=== PATIENT | female | born 1940 | race Caucasian/White ===

== ENCOUNTER 2017-05-25 10:33 | Day surgery (SDC) | payer MEDICARE, OTHER ==
[2015-09-27 15:42] VITALS: BMI 27.5
[~2017-05-25 10:33] MED LIST: BAYER CHEWABLE81 MG PO; BIOTIN5 MG PO; CELEXA20 MG PO; COREG 3.1253.125 MG PO; DESERYL100 MG PO; GABAPENTIN100 MG PO; MYSOLINE 50 MG50 MG PO; NITROSTAT0.4 MG SL; PEPCID40 MG PO; PLAVIX75 MG PO; PROTONIX40 MG PO; ROCALTROL0.5 MCG PO; SINGULAIR10 MG PO; TUMS500 MG PO; VITAMIN B-121000 MCG PO; VITAMIN D250000 UNIT PO; ZOCOR10 MG PO; ZYRTEC10 MG PO
[2017-05-25] MEDS ORDERED: FUROSEMIDE10 MG/M1 IV (12:16)
[2017-05-25] MEDS ORDERED: K-TAB10 MEQ PO (12:18)
[2017-05-25] MEDS ORDERED: ISOSORBIDE MONO30 M1 PO (12:18)
[2017-05-25] MEDS ORDERED: ROCALTROL0.5 MCG PO (12:19)
== END 2017-05-25 12:35 | disposition home or self-care (01) ==
LOC: D.OPS 10:33
DX: R10.13 Epigastric pain (principal); R11.0 Nausea; K21.9 Gastro-esophageal reflux disease without esophagitis; Z01.810 Encounter for preprocedural cardiovascular examination; Z01.811 Encounter for preprocedural respiratory examination; Z01.812 Encounter for preprocedural laboratory examination; Z53.9 Procedure and treatment not carried out, unspecified reason

== ENCOUNTER 2017-06-01 11:23 | Day surgery (SDC) | payer MEDICARE, OTHER ==
[~2017-06-01] VITALS: Ht 157.5 cm; Wt 76.8 kg
[~2017-06-01 11:23] MED LIST changes: +FUROSEMIDE10 MG/M1 IV; +ISOSORBIDE MONO30 M1 PO; +K-TAB10 MEQ PO
[2017-06-01] MEDS ORDERED: CARAFATE1 G/10 ML PO (13:46)
[2017-06-01 13:50] VITALS: BP 113/62; Ht 157.5 cm; Wt 76.8 kg
[2017-06-01 14:11] LABS: BASOPHILS 0.4 % (0-2); EOSINOPHILS 2.5 % (0-7); HEMATOCRIT 36.5 % (36.0-48.0); HEMOGLOBIN 11.3 g/dL (12-16); IMMATURE GRANULOCYTES 0.1 % (0-5); MCH 26.5 pg (26.0-34.0); MCV 85.5 fL (80.0-100.0); MEAN PLATELET VOLUME 9.1 fL (7.4-10.4); MONOCYTES 6.8 % (2-11); NEUTROPHILS 47.2 % (40-80); PLATELET COUNT 171 10x3/uL (130-400); RBC 4.27 10x6/uL (4.00-5.40); RDW 14.2 % (11.5-14.5); WBC 6.8 10x3/uL (4.8-10.8)
[2017-06-01 14:34] LABS: ANION GAP 9.9 mmol/L (8-16); CALCIUM 8.7 mg/dL (8.5-10.1); CARBON DIOXIDE 32.9 mmol/L (21.0-32.0); CREATININE - SERUM 0.9 mg/dL (0.6-1.3); POTASSIUM - SERUM 3.8 mmol/L (3.5-5.1)
--- NOTE | 2017-06-01 15:48 | NUR ---
1548-DILATE ESOPHAGUS WITH 18-20 CRE BALLOON.
--- NOTE | 2017-06-01 16:21 | NUR ---
1610- PT BACK TO ROOM, LEFT LATERAL WITH HOB ELEVATED. CONTINUES WITH COUGH. WAS AGGREVATED BY PROCEDURE. DR. YBARRA AT BEDSIDE. TWO VEIW CHEST XRAY ORDERED. PT WITH WATER AND FAMILY AT BEDSIDE. WILL MONITOR.
--- NOTE | 2017-06-01 16:27 | NUR ---
PT TO RADIOLOGY FOR CHEST XRAY VIA WHEELCHAIR.
--- NOTE | 2017-06-01 17:06 | NUR ---
1645- IV D/C'D, PT TOLERATED. CATHETER INTACT 1655- DISCHARGE INSTRUCTIONS COMPLETED. PAPER WORK SIGNED. PT AND FAMILY VERBALIZED UNDERSTANDING. 1700- PT DISCHARGED VIA AMBULATION WITH X1 ASSIST UPON REQUEST. WALKED HER DOWN WITH CARLITOS TO CHRISTEN.
--- NOTE | 2017-06-02 07:48 | OP ---
PATIENT NAME: JAZMIN PARSON MEDICAL RECORD: [id number] :39 [facility] DATE: SURGEON: RAVINDRA YBARRA DO DATE OF OPERATION: 06/01/2017 PROCEDURE: EGD. INDICATIONS: Epigastric abdominal pain, dysphagia, GERD, nausea. SCOPE: Olympus video gastroscope. MEDICATIONS: Propofol 200 mg IV per anesthesia. ESTIMATED BLOOD LOSS: Minimal. COMPLICATIONS: None. FINDINGS: Informed consent was given. The patient was made comfortable with the above medication. After reaching an adequate level of sedation by slow IV push, the patient was placed on her left side. The endoscope was then advanced under direct visualization through the mouth to the small bowel. The upper and middle thirds of the esophagus appeared normal. In the lower third of the esophagus, there was some healing esophageal ulcerations, which were clean based and very superficial. Just proximal to the GE junction, there was a nonstenotic Schatzki ring, which was approximately 15-16 mm in diameter. The scope traversed this site without difficulty. At the GE junction, there was evidence of LA class A reflux-induced esophagitis. There was a hiatal hernia present and visible from the esophageal side of the GE junction. When the scope was advanced beyond the GE junction, there was a small gastric pouch with some friability and granular mucosa. There was also some bile in the stomach, which could indicate that this is bilious gastritis. Scope was advanced beyond this site in the small bowel, which appeared normal. Scope was then withdrawn back up into the stomach and a 18-20 mm dilating CRE balloon was placed through the working channel. The endoscope was withdrawn back to the Schatzki ring and this site was dilated up to 20 mm without difficulty and successfully. The CRE balloon was then withdrawn from the scope and the endoscope was withdrawn from the patient. The patient tolerated the procedure well and there were no complications. IMPRESSION: 1. Schatzki ring dilated up to 20 mm. 2. LA class A reflux-induced esophagitis. 3. Healed esophageal ulcers. 4. Friable and possible bilious gastritis. 5. Hiatal hernia. PLAN AND RECOMMENDATIONS: 1. Discharge home when recovery parameters are met. 2. Continue GERD diet with reflux precautions. 3. Continue current medications including famotidine 40 mg b.i.d. and Carafate tablets dissolved q.i.d. 4. Follow up with Dr. Cardenas regarding possible LINX placement. 5. Proceed with colonoscopy as scheduled. TRANSINT:[id number] Voice Confirmation ID: [id number] DOCUMENT ID: [id number] OPERATIVE REPORT [id number] JAZMIN PARSON,RAVINDRA Chambers DO at 0748 CC: [id number] DICTATION DATE: 06/01/17 1600 OIL SPRAYING MACHINE OPERATOR: 06/01/17 1630 [facility] 06/01/[address] [address]
== END 2017-06-01 17:00 | disposition home or self-care (01) ==
LOC: D.OPS 11:23
PROVIDERS: Anesthesiology
DX: K21.0 Gastro-esophageal reflux disease with esophagitis (principal); K22.2 Esophageal obstruction; K44.9 Diaphragmatic hernia without obstruction or gangrene; K29.70 Gastritis, unspecified, without bleeding; Z01.812 Encounter for preprocedural laboratory examination

== ENCOUNTER 2017-06-08 07:32 | Day surgery (SDC) | payer MEDICARE, OTHER ==
[~2017-06-08] VITALS: Ht 152.4 cm; Wt 73.6 kg
[~2017-06-08 07:32] MED LIST changes: +CARAFATE1 G/10 ML PO
[2017-06-08 09:09] LABS: ANION GAP 12.5 mmol/L (8-16); CALCIUM 8.5 mg/dL (8.5-10.1); CARBON DIOXIDE 27.9 mmol/L (21.0-32.0); CREATININE - SERUM 0.9 mg/dL (0.6-1.3); POTASSIUM - SERUM 3.4 mmol/L (3.5-5.1)
[2017-06-08 09:30] LABS: HEMATOCRIT 36.5 % (36.0-48.0); HEMOGLOBIN 11.4 g/dL (12-16); MCH 26.1 pg (26.0-34.0); MCHC 31.2 g/dL (31.0-37.0); MCV 83.7 fL (80.0-100.0); MEAN PLATELET VOLUME 10.3 fL (7.4-10.4); RBC 4.36 10x6/uL (4.00-5.40); RDW 14.3 % (11.5-14.5); WBC 6.4 10x3/uL (4.8-10.8)
[2017-06-08 09:35] VITALS: BP 142/71; Ht 152.4 cm; Wt 73.6 kg
--- NOTE | 2017-06-08 12:19 | NUR ---
1115-RETURNED TO ROOM FROM GI LAB. ALERT. FULL LIQUIDS SERVED. 1120-DR YBARRA HERE TO REPORT FINDINGS 1145-NO NAUSEA, IV D/C AND VOIDS. 1215-DISCHARGE INSTRUCTIONS REVIEWED AND D/C HOME VIA WHEELCHAIR WITH DAUGHTER.
--- NOTE | 2017-06-09 09:13 | OP ---
PATIENT NAME: JAZMIN PARSON MEDICAL RECORD: [id number] :39 LOCATION:[facility] ADMISSION DATE: SURGEON: RAVINDRA YBARRA DO DATE OF OPERATION: 06/08/2017 PROCEDURE: Colonoscopy. INDICATION: History of colon polyps, diverticular disease and hematochezia. SCOPE: Inform Direct video pediatric colonoscope. MEDICATIONS: Propofol 150 mg IV per anesthesia. WITHDRAWAL TIME: 7 minutes. ESTIMATED BLOOD LOSS: None. COMPLICATIONS: None. FINDINGS: Informed consent was given. The patient was made comfortable with the above medication. After reaching an adequate level of sedation by slow IV push, the patient was placed on her left side. A digital rectal examination was performed and revealed moderate size external hemorrhoids without any signs of bleeding or bleeding stigmata. Scope was then advanced under direct visualization through the rectum to the cecum with visualization of the appendiceal orifice and ileocecal valve. The scope was slowly withdrawn and mucosa was carefully examined. Prep quality was good. There were no polyps visualized on this examination. There were no ulcerations or other abnormalities seen. There was no active or recent bleeding visualized. There was moderate diverticulosis of the descending and sigmoid colon without evidence of diverticulitis. Retroflexion was performed in the rectum with visualization of small nonbleeding internal hemorrhoids. The scope was then withdrawn from the patient. The patient tolerated the procedure well and there were no complications. IMPRESSION: 1. Moderate diverticulosis of the left side of the colon. 2. Internal and external hemorrhoids without active bleeding or bleeding stigmata. PLAN AND RECOMMENDATIONS: 1. Discharge home when recovery parameters are met. 2. Okay to use rpnl-[id number]-rfbngvd hemorrhoid treatment. 3. No further colonoscopies based on the patient's age, unless symptoms warrant evaluation. 4. If bleeding becomes persistent and is not management by rxei-eqh-xufopqg treatments, prescription medications will be offered for likely hemorrhoidal bleeding. Alternatively, the patient could have intermittent diverticular bleeding and if this became persistent, surgery may be required to help with this. As of now, there is no bleeding and this should be monitored expectantly. TRANSINT:[id number] Voice Confirmation ID: [id number] DOCUMENT ID: [id number] OPERATIVE REPORT [id number] JAZMIN PARSON RAVINDRA YBARRA DO at 0913 CC: [id number] DICTATION DATE: 06/08/17 1104 DATABASE PROGRAMMER ANALYST: 06/08/17 1706 [facility] 06/08/17 [facility] [address] [place] [address]
== END 2017-06-08 12:15 | disposition home or self-care (01) ==
LOC: D.OPS 07:32
PROVIDERS: Anesthesiology
DX: Z86.010 Personal history of colon polyps (principal); K57.30 Diverticulosis of large intestine without perforation or abscess without bleeding; K64.4 Residual hemorrhoidal skin tags; K64.8 Other hemorrhoids; K21.9 Gastro-esophageal reflux disease without esophagitis; Z01.812 Encounter for preprocedural laboratory examination

== ENCOUNTER 2017-06-12 20:04 | Inpatient (IN) | payer MEDICARE, OTHER ==
[~2017-06-12] VITALS: Ht 152.4 cm; Wt 78.5 kg
[2017-06-12 20:51] LABS: BASOPHILS 0 % (0-2); EOSINOPHILS 0.2 % (0-7); HEMATOCRIT 42.1 % (36.0-48.0); HEMOGLOBIN 13.6 g/dL (12-16); IMMATURE GRANULOCYTES 0.1 % (0-5); LYMPHOCYTES 8.6 % (15-50); MCH 26.9 pg (26.0-34.0); MCHC 32.3 g/dL (31.0-37.0); MCV 83.2 fL (80.0-100.0); MEAN PLATELET VOLUME 9.2 fL (7.4-10.4); MONOCYTES 3.9 % (2-11); NEUTROPHILS 87.2 % (40-80); PLATELET COUNT 193 10x3/uL (130-400); RBC 5.06 10x6/uL (4.00-5.40); RDW 14.5 % (11.5-14.5); WBC 8.7 10x3/uL (4.8-10.8)
[2017-06-12 20:53] LABS: APPEARANCE CLEAR (CLEAR); BILIRUBIN NEGATIVE (NEGATIVE); COLOR YELLOW (YELLOW); GLUCOSE NEGATIVE (NEGATIVE); KETONE SMALL mg/dL (NEGATIVE); LEUKOCYTE ESTERASE NEGATIVE (NEGATIVE); NITRITE NEGATIVE (NEGATIVE); PROTEIN NEGATIVE (NEGATIVE); UROBILINOGEN NORMAL (NORMAL)
[2017-06-12 20:58] LABS: ALBUMIN 3.6 g/dL (3.4-5.0); ANION GAP 12.6 mmol/L (8-16); BILIRUBIN - TOTAL 0.58 mg/dL (0.2-1.3); CALCIUM 8.9 mg/dL (8.5-10.1); CARBON DIOXIDE 27.9 mmol/L (21.0-32.0); POTASSIUM - SERUM 3.5 mmol/L (3.5-5.1); PROTEIN - SERUM 7.1 g/dL (6.4-8.2)
[2017-06-12 22:25] LABS: APTT 30.5 SECONDS (22.8-39.4); INR 0.96 (0.85-1.17); PROTIME 12.7 SECONDS (11.6-15.0)
[2017-06-13] VITALS (7 sets, daily range): BP systolic 105–148; BP diastolic 56–78; Ht 152.4 cm; Wt 78.5 kg
--- NOTE | 2017-06-13 00:06 | NUR ---
PATIENT RECIEVED FROM ER VIA STRETCHER WITH DAUGHTER, RN AND SHIP'S SURVEYOR. INVANZ RESTARTED IN ROOM ON IV PUMP
--- NOTE | 2017-06-13 01:18 | NUR ---
RN NOTE: ADMISSION ASSESSMENT COMPLETE. PT RESTING QUIETLY AT THIS TIME. DAUGHTER IS AT BEDSIDE.
--- NOTE | 2017-06-13 01:31 | NUR ---
MEAT PRODUCTS DEMONSTRATOR NOTIFIED THAT DR SEXTON WAS BEING PAGED FOR PATIENT HAVING A TEMP OF 100.8 AFTER FIRST DOSE OF ABX.
--- NOTE | 2017-06-13 07:45 | NUR ---
SLEEPING, DAUGHTER AT BEDSIDE, CALL LIGHT IN REACH, WILL CONTINUE TO MONITOR
--- NOTE | 2017-06-13 10:35 | NUR ---
PT LAYING IN BED ASLEEP WITH NO VISABLE SIGNS OF PAIN OR DISCOMFORT AT THIS TIME. PT HAS FAMILY MEMBER AT BEDSIDE. BED IN LOW POSITION AND CALL LIGHT WITHIN REACH. WILL CONTINUE TO MONTIOR.
--- NOTE | 2017-06-13 21:48 | NUR ---
DILADID COMPUTER SYSTEMS TECHNICIAN DECREASED FROM STTINGS 0.2/07/15 TO 0.1/07/15
--- NOTE | 2017-06-14 03:04 | NUR ---
PT RESTING QUIETLY, EYES CLOSED. RESP EVEN, UNLABORED. NO DISTRESS NOTED. DAUGHTER AT BEDSIDE. CONTINUE ENVIRONMENTAL ATTORNEY'S PLAN OF CARE.
[2017-06-14 04:04] VITALS: BP 148/68
--- NOTE | 2017-06-14 06:00 | NUR ---
SMALL BLOOD CLOT PASSED RECTALLY. PATIENT AGITATED AND WANTS SOMETHING TO HELP HER HAVE A BM
--- NOTE | 2017-06-14 07:35 | NUR ---
PT ASLEEP WITH NO VISABLE SIGNS OF PAIN OR DISCOMFORT AT THIS TIME. BED IN LOW POSITION AND CALL LIGHT WITHIN REACH. WILL CONTINUE TO MONITOR.
--- NOTE | 2017-06-14 07:45 | NUR ---
ALERT, DENIES NEEDS, DAUGHTER AT BEDSIDE, DAUGHTER IS UPSET WE WON'T PRINT A COPY OF HER CT SCAN, I INFORMED HER SHE CAN GET COPIES FROM MEDICAL RECORDS UPON DISCHARGE PER CATALYST OPERATOR GASOLINE, WILL CONTINUE TO MONITOR
[2017-06-14 08:57] VITALS: BP 122/52
[2017-06-14 12:35] VITALS: BP 134/67
[2017-06-14 15:25] VITALS: BP 132/66
[2017-06-14 19:00] VITALS: BP 114/55
--- NOTE | 2017-06-15 01:59 | NUR ---
PT HAS HAD TWO BM'S WITH FORMED BLOODY STOOL. PT DOES NOT APPEAR TO STRAIN WHEN HAVING BOWEL MOVEMENTS. FIRST STOOL WAS BRICK RED IN COLOR, SECOND STOOL WAS MORE RED IN COLOR. PT HAS NAUSEA AT TIMES FOLLOWING "PUSH" OF HER UNDERGRADUATE INTERN BUTTON. RATES PAIN AT 5/10. COMPLETE ASSESSMENT PER FLOW-SHEET. WILL CONTINUE TO MONITOR.
[2017-06-15 04:00] VITALS: BP 125/59
[2017-06-15 04:54] LABS: BASOPHILS 0.1 % (0-2); EOSINOPHILS 0.6 % (0-7); HEMATOCRIT 35.3 % (36.0-48.0); HEMOGLOBIN 11.1 g/dL (12-16); IMMATURE GRANULOCYTES 0.4 % (0-5); LYMPHOCYTES 7.7 % (15-50); MCH 26.7 pg (26.0-34.0); MCHC 31.4 g/dL (31.0-37.0); MCV 84.9 fL (80.0-100.0); MEAN PLATELET VOLUME 9.7 fL (7.4-10.4); MONOCYTES 2.7 % (2-11); NEUTROPHILS 88.5 % (40-80); PLATELET COUNT 185 10x3/uL (130-400); RBC 4.16 10x6/uL (4.00-5.40); RDW 15.4 % (11.5-14.5); WBC 13.2 10x3/uL (4.8-10.8)
[2017-06-15 05:20] LABS: ALBUMIN 2.2 g/dL (3.4-5.0); BILIRUBIN - TOTAL 0.4 mg/dL (0.2-1.3); CALCIUM 8.3 mg/dL (8.5-10.1); CARBON DIOXIDE 27.8 mmol/L (21.0-32.0); CREATININE - SERUM 0.8 mg/dL (0.6-1.3); POTASSIUM - SERUM 3.8 mmol/L (3.5-5.1); PROTEIN - SERUM 5.9 g/dL (6.4-8.2)
--- NOTE | 2017-06-15 07:24 | NUR ---
REPORT RECEIVED FROM NEEDLE PUNCH MACHINE OPERATOR NURSE. CALL LIGHT IN REACH.
--- NOTE | 2017-06-15 08:23 | NUR ---
ASSESSMENT COMPLETED. IS GIVEN TO PATIENT. DAUGHTER STATES PATIENT KNOWS HOW TO USE IT ALREADY. EXPLAINED THAT IT NEEDS TO BE USED AT LEAST 10 TIMES EVERY 2 HOURS. SCDs APPLIED TO BLE PER ORDER AND EXPLAINED REASON FOR THEM. DAUGHTER STATES THEY ALREADY KNOW. O2 PLACED BACK ON. BED ALARM TURNED ON AND ALSO EXPLAINED WHY. VERBALIZED UNDERSTANDING PER DAUGHTER. NO OTHER NEEDS VOICED AT THIS TIME. CALL LIGHT IN REACH. WILL CONTINUE WITH PLAN OF CARE.
[2017-06-15 10:01] VITALS: BP 146/67
--- NOTE | 2017-06-15 10:33 | NUR ---
AM MEDS ADMINISTERED. NORCO PO PER C/O PAIN OF 4 TO ABDOMEN. MAINTENANCE WORKER HOUSE TRAILER DC'D PER MD ORDER. SMALL STOOL WITH DARK RED COLOR NOTED IN BEDSIDE COMMODE. WILL MAKE SURE MD IS AWARE. SON IN ROOM. O2 PLACED BACK ON PATIENT AND BED ALARM TURNED BACK ON.
--- NOTE | 2017-06-15 12:28 | NUR ---
HELD TYLENOL BECAUSE AMOUNT HAS BEEN EXCEEDED FOR THE DAY. CARAFATE PO. CALL LIGHT IN REACH.
[2017-06-15 13:13] VITALS: BP 128/58
--- NOTE | 2017-06-15 13:26 | NUR ---
NORCO PO PER C/O PAIN OF 4. CALL LIGHT IN REACH.
--- NOTE | 2017-06-15 14:04 | NUR ---
IN BED WITH EYES CLOSED. RESP EVEN AND UNLABORED. PROCALAMINE INFUSING @ 75 CC/HR, ZOFRAN DRIP @ 4.7 CC/HR, AND NS @ 10 CC/HR TO AC IV. SITE FREE FROM EDEMA OR ERYTHEMA. BED ALARM ON. CALL LIGHT IN REACH. SON AT BEDSIDE.
--- NOTE | 2017-06-15 14:21 | NUR ---
GABAPENTIN PO AND MERREM IVPB. PAIN IS DOWN TO A 3 AT THIS TIME. CALL LIGHT IN REACH.
[2017-06-15 15:52] VITALS: BP 123/61
--- NOTE | 2017-06-15 16:49 | NUR ---
COREG AND NORCO PO WITH SIP OF WATER. CARAFATE PO. NEW BAG OF PROCALAMINE SPIKED. SON IN ROOM. CALL LIGHT IN REACH.
--- NOTE | 2017-06-15 18:07 | NUR ---
NO CHANGES IN INITIAL ASSESSMENT. SON IN ROOM. SCDs TO BLE. BED ALARM ON. CALL LIGHT IN REACH. WILL CONTINUE WITH PLAN OF CARE.
[2017-06-15 19:00] VITALS: BP 119/55
--- NOTE | 2017-06-15 20:00 | NUR ---
ASSESSMNT PER FLOWSHEET. IV PATENT RT AC OF PROCALAMINE AT 75CC'/HR ZOFRAN GTT AT 4.7CC'S/HR NS AT 10CC'S/HR SITE RED AND FLUID LEAKING. IV PLACED ON DELAY RESITED TO LEFT HAND #22G X 1 ATTEMPT RESUMED IV FLUIDS.
--- NOTE | 2017-06-15 21:15 | NUR ---
C/O ABDOMINAL PAIN RATES PAIN LEVEL #3 NORCO 5 TAB ONE PO GIEVN FOR PAIN CONTROL.
--- NOTE | 2017-06-15 21:45 | NUR ---
UP TO BR VOIDS ASSISTED BACK TO BED. REPLACED SCD'S TO BILATERAL LEGS.
--- NOTE | 2017-06-16 00:23 | NUR ---
C/O ANDOMINAL PAIN RATES PAIN LEVEL #3 NORCO TAB ONE PO GIVEN FOR PAIN CONTROL.
--- NOTE | 2017-06-16 01:00 | NUR ---
HELD IV TYLENOL PT HAS EXCEEDED MAXIMIUM DOSE OF TYLENOL/24 HR.
--- NOTE | 2017-06-16 03:15 | NUR ---
C/O ABDOMINAL PAIN NORCO TAB ONE PO GIVEN FOR PAIN CONTROL.
[2017-06-16 04:00] VITALS: BP 152/82
--- NOTE | 2017-06-16 05:30 | NUR ---
PORTABLE XRAY DONE FOR A KUB.C/O ABDOMINAL PAIN NORCO TAB ONE PO GIVEN FOR PAIN CONTROL.
[2017-06-16 06:04] LABS: BASOPHILS 0.1 % (0-2); EOSINOPHILS 2.7 % (0-7); HEMATOCRIT 35.2 % (36.0-48.0); HEMOGLOBIN 11.2 g/dL (12-16); IMMATURE GRANULOCYTES 0.2 % (0-5); LYMPHOCYTES 9.6 % (15-50); MCH 26.7 pg (26.0-34.0); MCHC 31.8 g/dL (31.0-37.0); MEAN PLATELET VOLUME 9.6 fL (7.4-10.4); MONOCYTES 5.5 % (2-11); NEUTROPHILS 81.9 % (40-80); PLATELET COUNT 175 10x3/uL (130-400); RBC 4.19 10x6/uL (4.00-5.40); RDW 15.2 % (11.5-14.5)
[2017-06-16 06:08] LABS: WBC 9.8 10x3/uL (4.8-10.8)
[2017-06-16 06:12] LABS: ALKALINE PHOSPHATASE 66 U/L (46-116); BILIRUBIN - TOTAL 0.47 mg/dL (0.2-1.3); CALC OSMOLALITY 280 mosm/kg (275-300); CALCIUM 8.2 mg/dL (8.5-10.1); CHLORIDE - SERUM 106 mmol/L (98-107); CREATININE - SERUM 0.7 mg/dL (0.6-1.3); GLUCOSE 111 mg/dL (74-106); SODIUM 139 mmol/L (136-145); UREA NITROGEN 19 mg/dL (7-18); eGFR NON AFRICAN AMERICAN 86 mL/min (90-120)
[2017-06-16 06:15] LABS: ALT (SGPT) 32 U/L (10-68)
--- NOTE | 2017-06-16 06:35 | NUR ---
NO CHANGES IN ASSESSMENT MEDS GIVEN PER DEC.
--- NOTE | 2017-06-16 07:07 | NUR ---
REPORT RECEIVED FROM OIL PROSPECTING OBSERVER NURSE. CALL LIGHT IN REACH.
--- NOTE | 2017-06-16 07:16 | NUR ---
PATIENT UP TO BS COMMODE AT THIS TIME, ASSISTED BY FAMILY. NO COMPLAINTS OR PROBLEMS NOTED. CALL LIGHT WITHIN REACH.
--- NOTE | 2017-06-16 07:50 | NUR ---
ASSESSMENT COMPLETED. SCDs PLACED BACK ON. BED ALARM ON. DAUGHTER IN ROOM. CALL LIGHT IN REACH. WILL CONTINUE WITH PLAN OF CARE.
--- NOTE | 2017-06-16 08:34 | NUR ---
LEILA WITH AM MEDS ADMINISTERED PER C/O PAIN OF 5. DAUGHTER IN ROOM. BED ALARM ON. CALL LIGHT IN REACH.
[2017-06-16 08:45] VITALS: BP 125/50
--- NOTE | 2017-06-16 10:05 | NUR ---
SON AT BEDSIDE. DENIES NEEDS AT THIS TIME. CALL LIGHT IN REACH.
--- NOTE | 2017-06-16 11:57 | NUR ---
TO BR PER OSMAR VIRGEN, AND BACK TO BED PER MYSELF. REPOSITIONED ON RIGHT SIDE. NORCO AND CARAFATE PO. CALL LIGHT IN REACH.
--- NOTE | 2017-06-16 12:18 | NUR ---
NUTRITION F/U CHART REVIEWED, PT VISIT. CURRENTLY NPO WITH PROCALAMINE @ 75 CC/HR. PROVIDING 441 KCAL, 54 GM PROTEIN PER DAY. WILL PROVIDE DIET WHEN ADVANCED, MONITOR INTAKE. RD FOLLOWING
[2017-06-16 12:33] VITALS: BP 148/69
--- NOTE | 2017-06-16 13:20 | NUR ---
RESTING WITH EYES CLOSED. RESP EVEN AND UNLABORED. FAMILY IN ROOM. CALL LIGHT IN REACH.
--- NOTE | 2017-06-16 13:44 | NUR ---
CM met with patient and son (Man) to assess discharge planning needs. Patient states she has 5 steps to enter in her home. She currently lives independent with her grandson and his . Patient is current with [facility]. Patient stated that either her daughter (dre) or her son (Hu) will be the one to take her home at discharge. Patient has a walker, shower chair, and a elevated toilet seat at home. CM will continue to follow and assist as needed. PCP: tesfaye hu (son) [phone] * Is the patient Alert and Oriented? Yes 0 * How many steps to enter\exit or inside your home? 5 0 * Pharmacy [facility] 0 * Preadmission Environment Home with Family 0 * ADLs Independent 0 * Equipment Elevated [place] Seat Rolling Walker Tub Bench 0 * List name and contact numbers for known caregivers / representatives who currently or will assist patient after discharge: LIVES WITH GRANDSON AND DAUGHTER - [place] [phone] SON- HU PARSON [phone] 0 * Community resources currently utilized Home Health 0 * Please name any agencies selected above. [facility] 0 * Additional services required to return to the preadmission environment? No 0 * Can the patient safely return to the preadmission environment? Yes 0 * Has this patient been hospitalized within the prior 30 days at any hospital? No 0 Grand Total: 0
--- NOTE | 2017-06-16 15:09 | NUR ---
AFTERNOON MEDS ADMINISTERED WITH NORCO. IV TUBING CHANGED PER HOSPITAL POLICY.
[2017-06-16 15:25] VITALS: BP 111/62
--- NOTE | 2017-06-16 17:00 | NUR ---
DENIES NEEDS AT THIS TIME. CALL LIGHT IN REACH.,
--- NOTE | 2017-06-16 18:48 | NUR ---
REQUESTED PAIN PILL THEN STATED SHE WANTED TO WAIT UNTIL LATER. EXPLAINED THAT I WOULD HAVE TO WASTE THIS ONE AND IT WOULD HAVE TO BE REPULLED WHEN SHE IS READY. VERBALIZED UNDERSTANDING. SENIOR MANAGER MMCOE NOTIFIED THAT DAUGHTER WANTS TO SPEAK WITH HER. NO OTHER CHANGES IN INITIAL ASSESSMENT. BED ALARM ON. REFUSES SCDs. DAUGHTER IN ROOM. CALL LIGHT IN REACH. WILL CONTINUE WITH PLAN OF CARE.
--- NOTE | 2017-06-16 20:00 | NUR ---
ASSESSMENT PER FLOWSHEET. IV PATENT RT HAND OF NS AT 10CC'S/HR PROCAL.AT 75CC'S/HR ZOFRAN GTT AT 4.7CC'S/HR. SITE CLEAR. BED ALARM ON. SR UP X2 CALL LIGHT WITHIN REACH. C/O ABDOMINAL PAIN NORCO TAB ONE PO GIVEN FOR PAIN CONTROL.
--- NOTE | 2017-06-16 21:30 | NUR ---
MEDS GIVEN PER MAR.
--- NOTE | 2017-06-16 23:30 | NUR ---
C/O ABDOMINAL PAIN NORCO TAB ONE PO GIVEN FOR PAIN CONTROL.
--- NOTE | 2017-06-17 | NUR ---
EYES CLOSED RESPIRATIONS WITH EASE AND UNLABORED.
--- NOTE | 2017-06-17 02:35 | NUR ---
C/O ABDOMINAL PAIN NORCO TAB ONE PO GIVEN FOR PAIN CONTROL.
[2017-06-17 04:00] VITALS: BP 193/66
[2017-06-17 06:19] LABS: BASOPHILS 0.1 % (0-2); EOSINOPHILS 2.8 % (0-7); IMMATURE GRANULOCYTES 0.4 % (0-5); LYMPHOCYTES 11.8 % (15-50); MCH 26.4 pg (26.0-34.0); MCHC 31.4 g/dL (31.0-37.0); MCV 83.9 fL (80.0-100.0); MEAN PLATELET VOLUME 9.8 fL (7.4-10.4); MONOCYTES 9.5 % (2-11); NEUTROPHILS 75.4 % (40-80); PLATELET COUNT 188 10x3/uL (130-400); RBC 4.17 10x6/uL (4.00-5.40); RDW 15.3 % (11.5-14.5); WBC 8.1 10x3/uL (4.8-10.8)
[2017-06-17 06:51] LABS: ALBUMIN 1.9 g/dL (3.4-5.0); ALKALINE PHOSPHATASE 57 U/L (46-116); ALT (SGPT) 24 U/L (10-68); CALC OSMOLALITY 279 mosm/kg (275-300); CALCIUM 8.5 mg/dL (8.5-10.1); CARBON DIOXIDE 25.9 mmol/L (21.0-32.0); CHLORIDE - SERUM 106 mmol/L (98-107); CREATININE - SERUM 0.6 mg/dL (0.6-1.3); GLUCOSE 104 mg/dL (74-106); PROTEIN - SERUM 5.7 g/dL (6.4-8.2); SODIUM 140 mmol/L (136-145); UREA NITROGEN 15 mg/dL (7-18); eGFR NON AFRICAN AMERICAN > 90 mL/min (90-120)
--- NOTE | 2017-06-17 07:18 | NUR ---
REPORT RECEIVED FROM ALLERGY AND IMMUNOLOGY SPECIALIST NURSE. CALL LIGHT IN REACH.
--- NOTE | 2017-06-17 08:08 | NUR ---
ASSESSMENT COMPLETED. REFUSES SCDs. BED ALARM ON. DAUGHTER AT BEDSIDE. CALL LIGHT IN REACH. WILL CONTINUE WITH PLAN OF CARE.
[2017-06-17 08:48] VITALS: BP 143/64
--- NOTE | 2017-06-17 10:27 | NUR ---
PATIENT IN MID BACA POSITION ALERT AND RESTING QUIETLY. NO SIGNS OF DISTRESS NOTED. PRIMARY NURSE TREVINO, DATA WAREHOUSING MANAGER PRESENT. SIDE RAILS UP X2. BED IN LOW POSITION. CALL LIGHT IN REACH.
--- NOTE | 2017-06-17 10:32 | NUR ---
AM MEDS ADMNISTERED WITH LEILA. DAUGHTER AT BEDSIDE. CALL LIGHT IN REACH.
--- NOTE | 2017-06-17 12:10 | NUR ---
DR. SEXTON IN ROOM TO SEE PATIENT.
[2017-06-17 12:33] VITALS: BP 143/84
--- NOTE | 2017-06-17 13:21 | NUR ---
MILK OF MAG AND CARAFATE PO. ALSO ADMINISTERED NORCO FOR PAIN OF 5. CALL LIGHT IN REACH. DAUGHTER AT BEDSIDE.
--- NOTE | 2017-06-17 15:20 | NUR ---
ALL IV TUBING CHANGED PER HOSPITAL POLICY.
--- NOTE | 2017-06-17 16:50 | NUR ---
AFTERNOON MEDS ADMINISTERED WITH [place]. FAMILY IN ROOM. CALL LIGHT IN REACH.
[2017-06-17 16:58] VITALS: BP 127/63
--- NOTE | 2017-06-17 18:12 | NUR ---
NO CHANGES IN INITIAL ASSESSMENT. CALL LIGHT IN REACH. FAMILY IN ROOM. ALAROM ON. STILL DOES NOT WANT TO WEAR SCDs. WILL CONTINUE WITH PLAN OF CARE.
[2017-06-17 19:00] VITALS: BP 130/64
--- NOTE | 2017-06-17 20:00 | NUR ---
ASSESSMENT PER FLOWSHEET. IV PATENT LEFT HAND OF NS AT 10CC'S/HR PROCAL. AT 75CC'S/HR ZOFRAN GTT AT 4.7CC'S/HR. DAUGHTER AT BEDSIDE. BED ALARM BED ON. SR UP X2 CALL LIGHT WITHIN REACH. OUT OF BED WITH HELP TO BSC. VOIDS WELL. NO BM.
--- NOTE | 2017-06-17 21:00 | NUR ---
MEDS GIVEN PER MAR. RESTING IN BED DENIES NEEDS.
[2017-06-18] VITALS (11 sets, daily range): BP systolic 76–156; BP diastolic 55–83
--- NOTE | 2017-06-18 04:30 | NUR ---
EYES CLOSED RESPIRATIONS WITH EASE AND UNLABORED.
[2017-06-18 05:04] LABS: BASOPHILS 0.3 % (0-2); EOSINOPHILS 2.8 % (0-7); HEMATOCRIT 35.3 % (36.0-48.0); IMMATURE GRANULOCYTES 0.3 % (0-5); LYMPHOCYTES 15.7 % (15-50); MCH 26.4 pg (26.0-34.0); MCHC 31.2 g/dL (31.0-37.0); MCV 84.7 fL (80.0-100.0); MEAN PLATELET VOLUME 9.7 fL (7.4-10.4); MONOCYTES 10.3 % (2-11); NEUTROPHILS 70.6 % (40-80); PLATELET COUNT 197 10x3/uL (130-400); RBC 4.17 10x6/uL (4.00-5.40); RDW 15.2 % (11.5-14.5); WBC 7.6 10x3/uL (4.8-10.8)
[2017-06-18 05:27] LABS: ALBUMIN 1.8 g/dL (3.4-5.0); ALKALINE PHOSPHATASE 64 U/L (46-116); ALT (SGPT) 20 U/L (10-68); CALC OSMOLALITY 282 mosm/kg (275-300); CALCIUM 8.4 mg/dL (8.5-10.1); CARBON DIOXIDE 32.3 mmol/L (21.0-32.0); CHLORIDE - SERUM 106 mmol/L (98-107); CREATININE - SERUM 0.7 mg/dL (0.6-1.3); GLUCOSE 102 mg/dL (74-106); POTASSIUM - SERUM 4.2 mmol/L (3.5-5.1); PROTEIN - SERUM 5.6 g/dL (6.4-8.2); SODIUM 142 mmol/L (136-145); UREA NITROGEN 13 mg/dL (7-18); eGFR NON AFRICAN AMERICAN 86 mL/min (90-120)
--- NOTE | 2017-06-18 06:14 | NUR ---
C/O PAIN ABDOMEN. NORCO TAB ONE PO GIVEN FOR PAIN CONTROL
--- NOTE | 2017-06-18 07:03 | NUR ---
REPORT RECEIVED FROM SURVEYOR CHAIN HELPER NURSE. CALL LIGHT IN REACH.
--- NOTE | 2017-06-18 08:05 | NUR ---
ASSESSMENT COMPLETED. REFUSES SCDs. BED ALARM ON. CALL LIGHT IN REACH. DAUGHTER IN ROOM. WILL CONTINUE WITH PLAN OF CARE.
--- NOTE | 2017-06-18 09:31 | NUR ---
AM MEDS ADMINISTERED PER STUDENT NURSE AND INSTRUCTOR.
--- NOTE | 2017-06-18 09:45 | NUR ---
VERY GROGGY AND CLAMMY. O2 SAT 91% ON 2L PER NC, HR 120 BPM, AND BP 160/74, RESP 27. DR. SEXTON IN ROOM. WANTS PATIENT SENT TO ICU. WILL CALL BROKERAGE COORDINATOR FOR TRANSFER BED.
--- NOTE | 2017-06-18 09:55 | NUR ---
Patient brought to ICU via bed from Med Surg accompained by RN x2, and student RN. Patient not following commands, states it hurts when we palpate her abdomen. Patient oriented to person and place. 3L NC. Left PIV infiltrated, IVF stopped, Filomena Eaton RN in room to place Midline cath. Patient is clammy, 97.0 temp. and aware of patients arrival to unit. Lab awaiting blood from midline for new orders. Radiology here for CXR. Patient sinus tach on CM, SBP stable at 130s.
--- NOTE | 2017-06-18 10:00 | NUR ---
ALEXA ROSEN, IN ROOM TO EXAMINE PATIENT.
--- NOTE | 2017-06-18 10:05 | NUR ---
TO ICU VIA BED AFTER CALLING REPORT TO ICU NURSE.
--- NOTE | 2017-06-18 10:20 | NUR ---
NUTRITION F/U CHART REVIEWED. PT NOW MOVED TO ICU. WILL CONTINUE TO MONITOR PT PROGRESS. RD FOLLOWING
--- NOTE | 2017-06-18 11:00 | NUR ---
Midline placed to right arm. in to see patient. in to see patient. Awaiting orders.
[2017-06-18 11:21] LABS: CKMB 0.3 U/L (0.0-3.6); CREATINE KINASE 31 UL (21-215); PRO BNP 1793 pg/mL (0-450)
[2017-06-18 11:27] LABS: TROPONIN-I < 0.017 ng/mL (0.000-0.060)
--- NOTE | 2017-06-18 11:41 | NUR ---
Lactulose orders received from due to critically high ammonia levels.
--- NOTE | 2017-06-18 12:28 | NUR ---
Patients family here to see patient, update given. carvajal cath placed, instrument/control technician in room performing echo at this time.
[2017-06-18 13:06] LABS: APPEARANCE HAZY (CLEAR); BACTERIA FEW /hpf (NONE SEEN); BILIRUBIN NEGATIVE (NEGATIVE); COLOR DK YELLOW (YELLOW); EPITHELIAL CELLS 0-5 /hpf (0-5); GLUCOSE NEGATIVE (NEGATIVE); GRANULAR CAST 0-5 /lpf (NONE SEEN); HYALINE CAST 0-5 /lpf (NONE SEEN); KETONE MODERATE mg/dL (NEGATIVE); LEUKOCYTE ESTERASE NEGATIVE (NEGATIVE); MUCUS >1+ /lpf (NONE SEEN); NITRITE NEGATIVE (NEGATIVE); PROTEIN NEGATIVE (NEGATIVE); RED CELLS - URINE OCC /hpf (0-5); WHITE CELLS - URINE OCC /hpf (0-5)
--- NOTE | 2017-06-18 14:30 | NUR ---
Entered room to find patient had d/c'd her midline, no bleeding at site. Called Filomena Eaton RN, she will be up to see what she can do.
--- NOTE | 2017-06-18 15:10 | NUR ---
2 PIVS started, family allowed back to see patient. Patient alert and talking with family some.
--- NOTE | 2017-06-18 17:06 | NUR ---
Patient resting, easily aroused, denies needs.
--- NOTE | 2017-06-18 18:41 | NUR ---
Paged regarding patients current status and vitals, SBP low 80s, patient remains tachycardic and obtunded. Orders received.
--- NOTE | 2017-06-18 18:57 | NUR ---
aware of consult, will see in AM.
--- NOTE | 2017-06-18 18:59 | NUR ---
Patients daughter and pack train driver at bedside, discussing patient care when patients eyes rolled into back of her head, patient unresponsive to pain, HR in the 80s and dropping, SBP low 80s. Code called, see code sheet. Family taken to family conference room.
--- NOTE | 2017-06-18 19:05 | NUR ---
PT BRADICARDIC TO 25. CODE BLUE CALLED. SEE CODE BLUE FLOW SHEET.
--- NOTE | 2017-06-18 19:43 | NUR ---
CODE RESUMED, SEE CODE BLUE SHEETS.
--- NOTE | 2017-06-18 19:58 | NUR ---
DR GRANT HERE, AWARE OF PT'S STATUS.
--- NOTE | 2017-06-18 19:58 | NUR ---
PT . FAMILY HERE. DR CAGLE PRONOUNCED THE PT.
--- NOTE | 2017-06-18 20:11 | NUR ---
MESSAGE LEFT FOR EDWAR. FAMILY AT BS.
--- NOTE | 2017-06-18 20:20 | NUR ---
DR VELAZCO CALLED AND NOTED OF PT'S EXPIRATION.
--- NOTE | 2017-06-18 20:30 | NUR ---
DR SINGER CALLED, NO RESPONSE BACK.
--- NOTE | 2017-06-18 21:07 | NUR ---
[facility] CALLED PER FAMILY REQUEST FOR BODY RELEASE.
--- NOTE | 2017-06-18 21:55 | NUR ---
TOYIN LIU CALLED AND NOTED OF PT'S .
--- NOTE | 2017-06-19 08:42 | PN ---
PATIENT:JAZMIN PARSON MEDICAL RECORD: [id number] LOCATION:D.ICU D.230 ADMISSION DATE: 06/12/17 PROGRESS NOTE DATE OF SERVICE: 06/15/2017 CHIEF COMPLAINT: Better. The patient is having less abdominal pain. She is a little less tender in the left lower quadrant as well. She has had an episode of nausea and vomiting. It corresponded to her hitting the Dilaudid STAFF SERVICES MANAGER, so it may be related to analgesia. For this reason, I am going to switch her over to hydrocodone, which she has taken in the past without any problems. She did have a bowel movement. There was some blood mixed in with it. Palpation aggravates. Nothing alleviates. Symptoms are constant. They are lessening. This is a progress note addendum. For the typed portion of the progress note, please see the chart. This would include the past medical and surgical history, current medications, allergies and family history. Positive for nausea and vomiting. No fever, no chills. Positive for abdominal pain. No headache, no chest pain. The review of systems is negative other than as is described above. PHYSICAL EXAMINATION: GENERAL: The patient does not appear acutely ill. She does appear chronically ill. VITAL SIGNS: Reviewed. The entire physical examination was performed with the presence of a female nurse. EARS: External ears appear normal. EYES: Extraocular movements are intact. NECK: Trachea is midline. CHEST: No intercostal retractions. PULMONARY: Nonlabored, no stridor. ABDOMEN: Tenderness as described above. EXTREMITIES: No peripheral cyanosis. INTEGUMENT: No rash, no ulcerations. PSYCHIATRIC: Normal affect. NEUROLOGIC: Nonfocal, no lethargy. The patient answers questions appropriately. She is hard of hearing. BACK: Mild thoracic kyphosis. LYMPHATIC: No lymphangitic streaking of the exposed extremities. IMPRESSION: Diverticular abscess with microperforation. PLAN: Continue IV antibiotics. Continue n.p.o. status. TRANSINT:[id number] Voice Confirmation ID: [id number] DOCUMENT ID: [id number] PROGRESS NOTE [id number] JAZMIN PARSON ELIN QUINTANA MD at 0842 CC: [id number] DICTATION DATE: 06/15/17912 CAR REPAIRMAN: 06/15/17 0956 DIS IN 06/18/17 [facility] [address] [facility] [address]
--- NOTE | 2017-06-19 08:42 | PN ---
PATIENT:JAZMIN PARSON MEDICAL RECORD: [id number] LOCATION:D.ICU D.230 ADMISSION DATE: 06/12/17 PROGRESS NOTE DATE OF SERVICE: 06/17/2017 CHIEF COMPLAINT: Better. The patient is less tender in the left lower quadrant. She had a couple of bowel movements. They were intermixed with some blood. No nausea, no vomiting. She is having some belching. Palpation aggravates. Nothing alleviates. Her symptoms are improved. They are nonradiating. This is a progress note addendum. For the typed portion of the progress note, please see the chart. This will included the past medical and surgical history, allergies, social history, family history as well as current medications. REVIEW OF SYSTEMS: As described above. No chest pain. No shortness of breath. PHYSICAL EXAMINATION: GENERAL: The patient does not appear acutely ill. She does appear chronically ill. VITAL SIGNS: Reviewed. The entire physical examination was performed in the presence of a female nurse. EARS: External ears appear normal. EYES: Extraocular movements are intact. NECK: Trachea is midline. CHEST: No intercostal retractions. PULMONARY: Nonlabored, no stridor. ABDOMEN: Left lower quadrant tenderness with guarding. No peritonitis to percussion. EXTREMITIES: No peripheral cyanosis. INTEGUMENT: No rash, no ulcerations. PSYCHIATRIC: Normal affect. NEUROLOGIC: Hard of hearing. Answers questions appropriately, otherwise, however. BACK: Mild thoracic kyphosis. LYMPHATIC: No lymphangitic streaking of the exposed extremities. IMPRESSION: Diverticular perforation symptomatically improved. PLAN: Continue IV antibiotics. I am going to start her on a clear liquid diet. Continued serial abdominal examinations. Her white count today is normal. TRANSINT:[id number] Voice Confirmation ID: [id number] DOCUMENT ID: [id number] PROGRESS NOTE [id number] PARISHJAZMIN NOONAN ELIN QUINTANA MD at 0842 CC: [id number] DICTATION DATE: 06/17/17 1401 CHANNEL INSTALLER: 06/18/17 0155 DIS IN 06/18/17 [facility] [address] [place] [address]
--- NOTE | 2017-06-19 08:42 | PN ---
PATIENT:JAZMIN PARSON MEDICAL RECORD: [id number] LOCATION:D.[facility] D.230 ADMISSION DATE: 06/12/17 PROGRESS NOTE DATE OF SERVICE: 06/14/2017 Addendum CHIEF COMPLAINT: Pain. The patient appears clinically improved. She is still quite tender in the left lower quadrant. She is much more alert. Whereas she was barely arousable yesterday and was essentially sleeping, today she is able to carry on a conversation. She is very hard of hearing and even with the aid of hearing aids, it t is very difficult to communicate with her. I again discussed with her and with her daughter, the pathophysiology of a perforated viscus. I have also discussed this with Dr. Powell. I believe that her situation was one where she underwent a colonoscopy and then got constipated afterwards, which her daughter says she is prone to. There appears to be a large impaction right in the area where the microperforation has occurred. This makes me believe that her current symptoms are due to diverticulitis with microperforation. Palpation aggravates. Nothing alleviates. Symptoms are somewhat improved. They are radiating at this time into the right lower quadrant. This is a progress note addendum. For the typed portion of the progress note, please see the chart. This would include the past medical and surgical history, current medications, allergies, social history and family history. REVIEW OF SYSTEMS: She is having some nausea. She is having some belching. No fever. Positive for abdominal pain. She has had no return of bowel function. Review of systems is negative other than as is described above. The review of systems is difficult to obtain due to the patient's hearing difficulties. PHYSICAL EXAMINATION: GENERAL: The patient does not appear acutely ill. She does not appear chronically ill. VITAL SIGNS: Reviewed. The entire physical examination was performed in the presence of a female nurse. EARS: External ears appear normal. She is very hard of hearing. NECK: Trachea is midline. CHEST: No intercostal retractions. PULMONARY: Nonlabored, no stridor. ABDOMEN: Left lower quadrant tenderness with guarding and peritonitis to percussion. EXTREMITIES: No peripheral cyanosis. INTEGUMENT: No rash, no ulcerations. PSYCHIATRIC: Normal affect. NEUROLOGIC: Hard of hearing. She does answer some questions. BACK: Mild thoracic kyphosis is present. LYMPHATIC: No lymphangitic streaking of the exposed extremities. IMPRESSION: Probable diverticulitis with microperforation. PLAN: Continue IV antibiotics for now. With worsening in her condition, we PROGRESS NOTE [id number] JAZMIN PARSON would repeat the CT scan to see if there is any evolving abscess or more extraluminal air. TRANSINT:[id number] Voice Confirmation ID: [id number] DOCUMENT ID: [id number] ELIN SEXTON MD at 0842 CC: [id number] DICTATION DATE: 06/14/17 1432 MULTIPLE COIL WINDER: 06/14/17 1816 DIS IN 06/18/17 [facility] [address] [place] [address]
--- NOTE | 2017-06-19 08:42 | HP ---
PATIENT: JAZMIN PARSON MEDICAL RECORD: [id number] ACCOUNT: [id number] LOCATION:[facility] D.2307 : 39 ADMISSION DATE: 06/12/17 HISTORY AND PHYSICAL EXAMINATION DATE OF SERVICE: 06/13/2017 CHIEF COMPLAINT: Pain. HISTORY OF PRESENT ILLNESS: The patient presented to the Emergency Room 5 days after undergoing a colonoscopy by Dr. Ponce. The patient had been feeling pretty good, also the pain was fairly sudden. I personally have reviewed the CT images. I have personally reviewed the CT report. It reveals a lot of what appears to be impacted stool within the colon. I think it is more likely that the patient developed acute diverticulitis and a microperforation rather than an iatrogenic injury to the colon with microperforation. If she had an iatrogenic perforation of the colon right after the procedure, I would have expected her to start experiencing symptoms. She did not start experiencing symptoms until about 5 days after the procedure. Palpation aggravates. Nothing alleviates. When I saw her on rounds on 06/13/2017, she appeared to be over sedated. I told the patient's daughter that I was going to cut back the SALES PROMOTION MANAGER because I think that the patient was over sedated and this would put her at risk for things like a respiratory arrest or pneumonia. This is a history and physical addendum. For the typed portion of the history and physical, please see the chart. This includes the patient's past medical and surgical history, current medications, allergies, social history as well as family history. REVIEW OF SYSTEMS: Unobtainable from the patient currently because of her over sedated state. She is barely arousable. PHYSICAL EXAMINATION: GENERAL: The patient does not appear acutely ill. She does not appear chronically ill. VITAL SIGNS: Reviewed. The entire physical examination was performed with the presence of a female nurse. EARS: External ears appear normal. EYES: Extraocular movements are intact. NECK: Trachea is midline. CHEST: No intercostal retractions. PULMONARY: Nonlabored, no stridor. ABDOMEN: Tenderness in the left lower quadrant with guarding. EXTREMITIES: No peripheral cyanosis. INTEGUMENT: No rash, no ulcerations. PSYCHIATRIC: Unable to assess as the patient is essentially sleeping. NEUROLOGIC: Unable to assess as the patient is over sedated and essentially sleeping. BACK: Mild thoracic kyphosis. LYMPHATICS: No lymphangitic streaking of the exposed extremities. IMPRESSION: Microperforation of the sigmoid colon, likely due to a perforated diverticulitis. PLAN: IV antibiotics, n.p.o. I am going to restart her home medicines with a HISTORY AND PHYSICAL [id number] JAZMIN PARSON sip of water. I have discussed with the patient's daughter in different treatment options including a Seth procedure, laparoscopic lavage with placement of drains. CT-guided drainage of any abscess collection that occurs. Due to her age, we discussed that if her body "patches", the leak in the large bowel. This is a person where we may not go back in 6 weeks to 3 months and perform a segmental colectomy due to her age and frailty. TRANSINT:[id number] Voice Confirmation ID: [id number] DOCUMENT ID: [id number] ELIN SEXTON MD at 0842 CC: [id number] DICTATION DATE: 06/14/17 142 BALLROOM DANCER: 06/14/17 1646 DIS IN 06/18/17 [facility] [address] [place] [address]
--- NOTE | 2017-06-19 08:42 | PN ---
PATIENT:JAZMIN PARSON MEDICAL RECORD: [id number] LOCATION:D.ICU D.230 ADMISSION DATE: 06/12/17 PROGRESS NOTE DATE OF SERVICE: 06/18/2017 CHIEF COMPLAINT: Worse. SUBJECTIVE: The patient has an interval worsening in her condition. The family states that this occurred suddenly about 6:30. She became very weak. She is lethargic. She is somnolent, but arousable. She is unable to swallow her pills. She has had some type of event. This may be a neurologic or cardiovascular event. She is clammy. She is complaining of shortness of breath. I am moving her to the intensive care unit. I am counseling the critical care pulmonology group. This is a progress note addendum. For the typed portion of progress note including the past medical and surgical history, allergies, social history, family history as well as current medications, please see the chart. REVIEW OF SYSTEMS: Unobtainable from the patient as she has had an altered mental status and is not thinking clearly. PHYSICAL EXAMINATION: GENERAL: The patient appears acutely ill. She also appears chronically ill. The entire physical examination was performed with the presence of a female nurse. VITAL SIGNS: Reviewed. EARS: External ears appear normal. EYES: Extraocular movements are intact. NECK: Trachea is midline. CHEST: No intercostal retractions. PULMONARY: Nonlabored, no stridor. ABDOMEN: Has tenderness in the left lower quadrant with peritonitis to percussion. EXTREMITIES: Clammy. There is peripheral pallor. NEUROLOGIC: Unable to assess due to her somnolent state. There has been a decrease in her mental status. PSYCHIATRIC: When arousable, she is anxious. BACK: Mild thoracic kyphosis. LYMPHATIC: No lymphangitic streaking of the exposed extremities. IMPRESSION: 1. Perforated diverticulitis. 2. Interval decompensation of her condition as described above. PLAN: Move her to the ICU. Critical care consultation. Repeat CT scan. TRANSINT:[id number] Voice Confirmation ID: [id number] DOCUMENT ID: [id number] PROGRESS NOTE [id number] JAZMIN PARSON ELIN QUINTANA MD at 0842 CC: [id number] DICTATION DATE: 06/18/17 0949 PUZZLE ASSEMBLER: 06/18/17 1029 DIS IN 06/18/17 [facility] [address] [facility]
--- NOTE | 2017-06-19 08:42 | PN ---
PATIENT:JAZMIN PARSON MEDICAL RECORD: [id number] LOCATION:D.ICU D.230 ADMISSION DATE: 06/12/17 PROGRESS NOTE DATE OF SERVICE: 06/16/2017 CHIEF COMPLAINT: Better. Her nausea has abated. She is having less abdominal pain. No bowel movement today, however. Palpation aggravates. Nothing alleviates. She still has significant tenderness in the left lower quadrant, but she states that her pain is improved. This is a progress note addendum. For the typed portion of the progress note, please see the chart. This would include the past medical and surgical history, current medications, allergies, social history and family history. REVIEW OF SYSTEMS: No nausea, no vomiting, no fever, no chills. Positive for abdominal pain. No chest pain or shortness of breath. The review of systems is negative other than as is described above. PHYSICAL EXAMINATION: GENERAL: The patient does not appear acutely ill. She does appear chronically ill. VITAL SIGNS: Reviewed. HEAD: External ears appear normal. EYES: Extraocular movements are intact. NECK: Trachea is midline. CHEST: No intercostal retractions. PULMONARY: Nonlabored, no stridor. ABDOMEN: Tenderness as described above. EXTREMITIES: No peripheral cyanosis. INTEGUMENT: No rash, no ulcerations. PSYCHIATRIC: Normal affect. NEUROLOGIC: Hard of hearing, answers questions appropriately, otherwise. BACK: Mild thoracic kyphosis. LYMPHATIC: No lymphangitic streaking of the exposed extremities. IMPRESSION: Diverticulitis with perforation. PLAN: Continue IV antibiotics for now. Also, n.p.o. TRANSINT:[id number] Voice Confirmation ID: [id number] DOCUMENT ID: [id number] PROGRESS NOTE [id number] PARISHJAZMIN NOONAN ABI SEXTON, ELIN KHOURY at 0842 CC: [id number] DICTATION DATE: 06/16/17 1420 WORKERS' COMPENSATION MAGISTRATE: 06/16/17 1534 DIS IN 06/18/17 [place] [id number] [place] [id number]
--- NOTE | 2017-06-23 09:05 | EC ---
PATIENT:JAZMIN PARSON DATE OF SERVICE: 06/12/17 SEX: F MEDICAL RECORD: [id number] DATE OF : 38 LOCATION:[facility] AGE OF PATIENT: 77 ADMISSION DATE: 06/12/17 REFERRING PHYSICIAN: INTERPRETING PHYSICIAN: GUME JASMINE MD ECHOCARDIOGRAM REPORT ECHO CHARGES 4 ECHO COMPLETE CLINICAL DIAGNOSIS: CHF HX OF CAD/CABG/STENTS/HTN ECHOCARDIOGRAPHIC MEASUREMENTS (adult normal given) AC root (d.<3.7cm) 3.6 cm LV Septum d (<1.2 cm> 1.5 cm Valve Excursion 1.7 cm LV Septum (systole) 1.9 cm Left Atria (s.<4.0cm> 3.0 cm LVPW d(<1.2cm) 1.5 cm RV (d.<2.3cm) 2.9 cm LVPW (sytole) 2.1 cm LV diastole(<5.6CM) 4.1 cm MV E-F(>70mm/sec) cm LV systole 3.2 cm LVOT Diameter 1.5 cm MV exc.(>10mm) cm Est.ejection fraction (50-75%) % Pericardial Effusion N DOPPLER: LVIT cm/sec A 47.0 cm/sec E 113 cm/sec LA cm/sec RVSP 31 mmHg LVOT 107 cm/sec AOP1/2T m/s Asc. Ao 124 cm/sec RVOT cm/sec RA cm/sec PA cm/sec AV Gradient Peak 6.16 mmHg AV Mean 3.17 mmHg AV Area 1.5 cm MV Gradient Peak 5.0 mmHg MV Mean 2.15 mmHg MV Area cm COMMENTS: Manager Of Maintenance: Mil TRAORE Ice Cream Man: Shantel Jasmine TAPE# PACS DATE OF SERVICE: 06/18/2017 Transthoracic Echocardiogram FINDINGS: 1. Left ventricle is difficult to visualize, but the patient is significantly tachycardic and has hyperdynamic function and appears to have concentric left ventricular hypertrophy. The end-diastolic dimensions are actually reduced. 2. The right ventricle is hyperdynamic and normal sized. 3. There are no gross valvular abnormalities throughout the study, and again it ECHOCARDIOGRAM REPORT [id number] JAZMIN PARSON is more of a qualitative study rather than quantitative. It is very difficult to see. CONCLUSION: The patient has hypertensive heart disease. The patient appears to be in atrial fibrillation with hyperdynamic function, although the posterior aspect of the heart was not well visualized. For possible better imaging, if it becomes clinically important, a transesophageal echocardiogram can be helpful or possibly a contrast-enhanced transthoracic echocardiogram. TRANSINT:[id number] Voice Confirmation ID: [id number] DOCUMENT ID: [id number] GUME JASMINE MD at 0905 CC: [id number] DICTATION DATE: 06/21/172038 WILDFIRE PREVENTION SPECIALIST: 06/21/17 2338 DIS IN 06/18/17 [facility] [address] [place] [address]
--- NOTE | 2017-06-30 16:50 | CN ---
PATIENT NAME:JAZMIN PARSON MEDICAL RECORD: [id number] : 38 LOCATION:[facility].2307 ADMIT DATE: 06/12/17 ACCOUNT: [id number] CONSULTING PHYSICIAN: TABATHA VELAZCO MD REFERRING PHYSICIAN: ELIN SEXTON MD DATE OF CONSULTATION: 06/18/2017 CONSULT REQUESTING PHYSICIAN: Elin Sexton MD. REASON FOR CONSULTATION: Tachycardia, mental status changes, acute shortness of breath, possible sepsis. HISTORY OF PRESENT ILLNESS: Ms. Parson is a 77-year-old female who was admitted with abdominal pain, nausea and vomiting. The patient was diagnosed perforated diverticulum. The patient was on IV Merrem. This morning, the patient suddenly became very tachycardic, with shortness of breath and also mental status changes. The patient was transferred to the ICU. REVIEW OF SYSTEMS: The detail is not obtainable. PAST MEDICAL HISTORY: 1. History of CVA. 2. Essential tremor. 3. History of hyperparathyroidism. 4. Congestive heart failure. 5. Coronary artery disease, status post MS. 6. Gastroesophageal reflux disease. 7. Chronic constipation. PAST SURGICAL HISTORY: 1. Cholecystectomy. 2. Herniorrhaphy. 3. Colon polyps removed. 4. Cardiac catheterization and stent placement. 5. Status post CABG. ALLERGIES: SHE IS ALLERGIC TO ADHESIVE TAPES. MEDICATIONS: On [employer] was reviewed. PERSONAL AND SOCIAL HISTORY: The patient is a nonsmoker, nondrinker. FAMILY HISTORY: Noncontributory. PHYSICAL EXAMINATION: GENERAL: Now, the patient is confused, but she is awakeable. VITAL SIGNS: The blood pressure is 135/73, pulse is 118, respirations 23, temperature 97.2. The T-max was 100.6. SpO2 is 94% on 4 liters nasal cannula. HEENT: Conjunctivae are pink, sclerae nonicteric. NECK: Supple, no JVD. CHEST: There are bilateral crackles. No wheezing. CENTRAL NERVOUS SYSTEM: There is no obvious cranial nerve abnormality. The gait was not tested. The speech was normal. IMAGING: Chest radiograph: There are increased interstitial markings. There CONSULT REPORT [id number] JAZMIN PARSON is infiltrate in left lower lobe, which is new. LABORATORY DATA: CBC: The WBC is 7.6, hemoglobin is 11, hematocrit 35.3, the platelet count is 197. ABG: The pH is 7.44, pCO2 is 33, pO2 is 70, bicarbonate 22.5. Chemistry: Sodium 142, potassium 4.2, chloride 106, BUN is 13, creatinine 0.7. The ammonia level is 60. The proBNP is 1793. The lactic acid level is 1.4. IMPRESSIONS: 1. Pneumonia, left lower lobe, most likely hospital-acquired pneumonia, possible aspiration. 2. Acute hypoxic respiratory failure secondary to pneumonia as well as pulmonary edema, congestive heart failure. 3. Sepsis, most likely secondary to pneumonia as well as secondary to perforated diverticulum. 4. Dyspnea. 5. Tachycardia. 6. Bibasilar atelectasis on the CT scan of the abdomen. 7. Acute mental status secondary to hyperammonemia. 8. Hyperammonemia. 9. Congestive heart failure with elevated proBNP, possible chronic diastolic dysfunction. RECOMMENDATIONS: 1. Start her on vancomycin and Levaquin. Continue meropenem IV. 2. Start IV Lasix. 3. Check the blood cultures, ABG and ammonia level is checked. We will follow series of ammonia level. 4. Follow up on the labs, check a cardiac echo, consult cardiology. Dr. Sexton, thank you for involving me in Ms. Parson. The critical care time is 45 minutes. TRANSINT:[id number] Voice Confirmation ID: [id number] DOCUMENT ID: [id number] TABATHA VELAZCO MD at 1650 CC: ELIN SEXTON MD [id number] DICTATION DATE: 06/18/17 1256 GOLD MINER BLASTING: 06/18/17 1445 DIS IN 06/18/17 [facility] [address] [place] [address]
== END 2017-06-18 19:58 | DRG 391 ==
LOC: D.ER 20:04 → D.ICU 22:40 → D.MS 22:40 → D.ICU 06-18 10:04
PROVIDERS: Emergency Medicine; Family Medicine; Physician Assistant Medical; ADMIT Surgery
PROC: B54MZZA Ultrasonography of Right Upper Extremity Veins, Guidance (ICD-10-PCS; principal; 2017-06-18)
PROC: 05HB33Z Insertion of Infusion Device into Right Basilic Vein, Percutaneous Approach (ICD-10-PCS; principal; 2017-06-18)
PROC: 0BH17EZ Insertion of Endotracheal Airway into Trachea, Via Natural or Artificial Opening (ICD-10-PCS; 2017-06-18)
DX: K57.20 Diverticulitis of large intestine with perforation and abscess without bleeding (principal); A41.9 Sepsis, unspecified organism; J96.01 Acute respiratory failure with hypoxia; J69.0 Pneumonitis due to inhalation of food and vomit; J98.11 Atelectasis; E72.20 Disorder of urea cycle metabolism, unspecified; I50.32 Chronic diastolic (congestive) heart failure; H91.90 Unspecified hearing loss, unspecified ear; I25.10 Atherosclerotic heart disease of native coronary artery without angina pectoris; K64.8 Other hemorrhoids; K64.4 Residual hemorrhoidal skin tags; G25.0 Essential tremor; R00.0 Tachycardia, unspecified; T17.900A Unspecified foreign body in respiratory tract, part unspecified causing asphyxiation, initial encounter